=== PATIENT | male | born 1980 | race Caucasian/White ===

== ENCOUNTER 2017-02-23 08:53 | Emergency (ER) | payer BC ==
[2017-02-23 09:00] VITALS: BMI 24.7
[2017-02-23] MEDS ORDERED: Oxycodone/Acetaminophen 5/325 mg Tab PO STA (09:56)
--- NOTE | 2017-02-23 09:57 | C.PDOC ---
History Of Present Illness 36 yr old male, hx of valve replacement on coumadin presents to the ER with complaints of left facial pain for the past 3 weeks. Patient states the pain is frontal but radiates to left side of head the maxillary, gum and teethes. Patient has seen the PMD who thought it was sinusitis and prescribed the patient amoxicillin, Claritin D and Benadryl, which the patient states did not help. Patient came into the ED today stating the pain /headache has worsen. Patient denies fever, chills, vision changes, cough, chest pain, SOB, nausea, vomiting, abdominal pain, diarrhea, weakness or numbness. Time Seen by Provider: 02/23/17 09:12 Chief Complaint (Nursing): Headache History Per: Patient History/Exam Limitations: no limitations Onset/Duration Of Symptoms: Persistent (3 weeks) Preceeding Symptoms: None Associated Symptoms: denies: Photophobia, Blurred Vision Past Medical History Reviewed: Historical Data, Nursing Documentation, Vital Signs Vital Signs: Last Vital Signs Temp 97.9 F 02/23/17 12:33 Pulse 71 02/23/17 12:33 Resp 17 02/23/17 12:33 BP 126/71 02/23/17 12:33 Pulse Ox 99 02/23/17 12:33 - Medical History Other PMH: Rhumatic Fever Other Surgeries: aortic valve replaced - [facility] Procedures INJECT/INFUSE NEC (06/13/05) Family History: States: No Known Family Hx - Social History Hx Alcohol Use: No Hx Substance Use: No Review Of Systems Except As Marked, All Systems Reviewed And Found Negative. Constitutional: Positive for: Other (Left facial pain radiating to gum and teeth.). Negative for: Fever, Chills Eyes: Negative for: Vision Change Cardiovascular: Negative for: Chest Pain Respiratory: Negative for: Shortness of Breath Gastrointestinal: Negative for: Nausea, Vomiting, Abdominal Pain, Diarrhea Neurological: Positive for: Headache (Frontal radiating to maxillary ). Negative for: Weakness, Numbness Physical Exam - Physical Exam Appears: Non-toxic, No Acute Distress Skin: Warm, Dry, No Rash Head: Atraumatic, Normacephalic Oral Mucosa: Moist Tongue: Normal Appearing, No Swelling Teeth: Normal Dentition, No Tender To Palpation, No Loose, Other (multiple fillings) Throat: Normal, No Erythema, No Exudate Neck: Normal, Normal ROM, Supple Chest: Symmetrical, No Tenderness Cardiovascular: Rhythm Regular, No Murmur Respiratory: Normal Breath Sounds, No Rales, No Rhonchi, No Stridor, No Wheezing Extremity: Normal ROM, No Swelling Neurological/Psych: Oriented x3, Normal Speech, Normal Motor ED Course And Treatment O2 Sat by Pulse Oximetry: 100 - CT Scan/US CT - Head Other Rad Studies (CT/US): Read By Radiologist, Radiology Report Reviewed CT/US Interpretation: PROCEDURE: CT HEAD WITHOUT CONTRAST. HISTORY: Left sided MONTANEZ, on coumadin, ?sinusitis,. COMPARISON: None available. TECHNIQUE: Axial computed tomography images were obtained through the head/brain without intravenous contrast. Radiation dose: Total exam DLP = 892 mGy-cm. FINDINGS: HEMORRHAGE: No intracranial hemorrhage. BRAIN: No mass effect or edema. No atrophy or chronic microvascular ischemic changes. VENTRICLES: Unremarkable. No hydrocephalus. CALVARIUM: Unremarkable. PARANASAL SINUSES: Unremarkable as visualized. No significant inflammatory changes. MASTOID AIR CELLS: Unremarkable as visualized. No inflammatory changes. OTHER FINDINGS: None. IMPRESSION: Normal CT of the Head. Progress Note: Medicated with percocet Medical Decision Making Medical Decision Making: PLAN: * CT - Head * INR * Percocet PO INR 3.4 CT (- )acute bleed or sinusitis Pt reprots dental exan with x rays less than a mth ago that was normal Results discussed Plan start gabapentin and neurology f/u Disposition Counseled Patient/Family Regarding: Diagnosis, Need For Followup - Disposition Referrals: Chito Alvarez MD [Staff Provider] - Disposition: HOME/ ROUTINE Disposition Time: 12:07 Condition: GOOD Additional Instructions: Follow up with PMD and Neurologist Prescriptions: Gabapentin [Neurontin] 1 cap PO TID #50 cap oxyCODONE/Acetaminophen [Percocet 5/325 mg Tab] 1 tab PO Q4H PRN #12 tab PRN Reason: .severe pain Instructions: Trigeminal Neuralgia (ED) Forms: Work Excuse - Clinical Impression Clinical Impression: Trigeminal neuralgia - Scribe Statement The provider has reviewed the documentation as recorded by the Scribe Sanam Chamberlain Provider Attestation: All medical record entries made by the Scribe were at my direction and personally dictated by me. I have reviewed the chart and agree that the record accurately reflects my personal performance of the history, physical exam, medical decision making, and the department course for this patient. I have also personally directed, reviewed, and agree with the discharge instructions and disposition.
[2017-02-23] MEDS ORDERED: Oxycodone/Acetaminophen 5/325 mg Tab ONE (10:07)
[2017-02-23 10:36] LABS: INR 3.4
--- NOTE | 2017-02-23 10:54 | CT ---
PROCEDURE: CT HEAD WITHOUT CONTRAST. HISTORY: Left sided MONTANEZ, on coumadin, ?sinusitis, COMPARISON: None available. TECHNIQUE: Axial computed tomography images were obtained through the head/brain without intravenous contrast. Radiation dose: Total exam DLP = 892 mGy-cm. FINDINGS: HEMORRHAGE: No intracranial hemorrhage. BRAIN: No mass effect or edema. No atrophy or chronic microvascular ischemic changes. VENTRICLES: Unremarkable. No hydrocephalus. CALVARIUM: Unremarkable. PARANASAL SINUSES: Unremarkable as visualized. No significant inflammatory changes. MASTOID AIR CELLS: Unremarkable as visualized. No inflammatory changes. OTHER FINDINGS: None. IMPRESSION: Normal CT of the Head.
[2017-02-23 12:34] VITALS: BP 126/71; PULSE 71; RESP 17; TEMP 97.9
[2017-02-24 08:17] VITALS: O2SAT 100
== END 2017-02-23 12:35 | disposition home or self-care (01) ==
LOC: C.ER 08:53
DX: G50.0 Trigeminal neuralgia (principal)

== ENCOUNTER 2017-03-03 10:32 | Emergency (ER) | payer BC ==
[2017-03-03 10:33] VITALS: BMI 24.7
[2017-03-03 10:40] VITALS: BP 141/87; PULSE 89; RESP 16; TEMP 97.5; O2SAT 98
--- NOTE | 2017-03-03 11:59 | C.PDOC ---
History Of Present Illness 36 yr old male presents to the ER c/o sharp shooting left sided facial pain for the past 2 weeks. Patient reports he was seen on February 23 in the ED, diagnosed with Trigeminal Neuralgia. Patient was seen by Dr.Monica Alonso and was given prescription for CTs of cervical and TMJ area. He has not yet been able to make appointment for imaging. He was given gabapentin and percocet for pain, states he has not been trying not to take the percocet since "it is addictive". He denies fever/chills, chest pain, SOB, nausea, vomiting, headache, dizziness, facial droop, slurred speech, visual changes, extremity weakness, sensory changes. Time Seen by Provider: 03/03/17 10:47 Chief Complaint (Nursing): Headache History Per: Patient History/Exam Limitations: no limitations Onset/Duration Of Symptoms: Persistent (2 weeks) Severity: Moderate Quality: Sharp, "Pain" Past Medical History Reviewed: Historical Data, Nursing Documentation, Vital Signs Vital Signs: Last Vital Signs Temp 97.5 F L 03/03/17 10:40 Pulse 89 03/03/17 10:40 Resp 16 03/03/17 10:40 BP 141/87 03/03/17 10:40 Pulse Ox 98 03/03/17 13:49 - [facility] Procedures INJECT/INFUSE NEC (06/13/05) Family History: States: No Known Family Hx - Social History Hx Alcohol Use: No Hx Substance Use: No - Immunization History Hx Tetanus Toxoid Vaccination: No Hx Influenza Vaccination: No Hx Pneumococcal Vaccination: No Review Of Systems Except As Marked, All Systems Reviewed And Found Negative. Constitutional: Negative for: Fever, Chills Cardiovascular: Negative for: Chest Pain, Palpitations Respiratory: Negative for: Shortness of Breath Gastrointestinal: Negative for: Nausea, Vomiting Musculoskeletal: Negative for: Neck Pain Skin: Negative for: Rash Neurological: Positive for: Other (Sharp, shooting left sided facial pain). Negative for: Weakness, Numbness Physical Exam - Physical Exam Appears: Well, Non-toxic, No Acute Distress Skin: Normal Color, Warm, Dry, No Rash Head: Atraumatic, Normacephalic, Other (no palpable/tender temporal arteries) Eye(s): bilateral: Normal Inspection, PERRL, EOMI Oral Mucosa: Moist Neck: Normal, Normal ROM, No Midline Cervical Tenderness, No Paracervical Tenderness, No Step Off Deformity, Supple Lymphatic: No Adenopathy Cardiovascular: Rhythm Regular Respiratory: Normal Breath Sounds, No Rhonchi, No Wheezing Gastrointestinal/Abdominal: Normal Exam, Bowel Sounds, Soft, No Tenderness, No Guarding, No Rebound Extremity: Normal ROM, No Swelling Neurological/Psych: Oriented x3, Normal Speech, Normal Cognition, Normal Cranial Nerves, No Cerebellar Signs, Normal Motor, Normal Sensation ED Course And Treatment O2 Sat by Pulse Oximetry: 98 (RA) Pulse Ox Interpretation: Normal - CT Scan/US CT - Cervical Spine Other Rad Studies (CT/US): Read By Radiologist, Radiology Report Reviewed CT/US Interpretation: PROCEDURE: CT Cervical Spine without contrast. HISTORY: Facial pain. COMPARISON: None available. TECHNIQUE: Axial computed tomography images were obtained of the cervical spine without the use of intravenous contrast. Coronal and sagittal reformatted images were created and reviewed. Radiation dose: Total exam DLP = 430.02 mGy-cm. This CT exam was performed using one or more of the following dose reduction techniques: Automated exposure control, adjustment of the mA and/or kV according to patient size, and/or use of iterative reconstruction technique. FINDINGS: VERTEBRAE: Vertebral bodies maintained in height. Normal vertebral alignment maintained. Atlantoaxial articulation and odontoid process are intact. DISCS/SPINAL CANAL/ NEURAL FORAMINA: Intervertebral disc spaces are maintained in height. Minimal disc bulge at C5-6 without spinal or neural foraminal stenosis. No spinal or neural foraminal stenosis elsewhere. PARASPINAL SOFT TISSUES: Unremarkable. OTHER FINDINGS: None. IMPRESSION: Minimal disc bulge at C5-6. No spinal or neural foraminal stenosis. The remainder of the examination is unremarkable. CT - IAC Other Rad Studies (CT/US): Read By Radiologist, Radiology Report Reviewed CT/US Interpretation: CT scan of the temporal bones dated 03/03/2017. History: Assess the left TMJ. Contiguous helical/transaxial, high resolution images of the temporal bones were obtained. Coronal and sagittal reformats were generated. No prior study available for comparison. This CT exam was performed using one or more of the following dose reduction techniques: Automated exposure control, adjustment of the mA and/or kV according to patient size, and/ or use of iterative reconstruction technique. Total exam DLP = 657.59 mGy-cm. Findings: The the visualized of mastoid air complexes are well-developed and currently well-aerated. No evidence of fluid or soft tissue opacification. The internal auditory canals and CP angle cisterns appear unremarkable porous acoustic is symmetric bilaterally. The inner ear structures are unremarkable. The middle ear canals and contents also normal. Drum spurs and ossicular chains are intact appropriately located without destructive change. No soft tissue was present within the middle ear canals. The external auditory canals are clear. The visualized portions of the mandible are also intact. Mandibular condyles are appropriately located. The visualized paranasal sinuses well- developed and currently well-aerated. No fluid levels seen to suggest acute sinusitis. Small area of lobulated mucosal thickening posterior inferior margin left maxillary antrum. Ostiomeatal complexes are patent. Small bilateral js bullosa left slightly larger than right. Minor mucosal thickening noted within a few superior ethmoid air cells. The frontal and sphenoid ethmoidal recesses are patent. Impression: Unremarkable examination of the temporal bones as described. The mandibular condyles intact and appropriately located. Progress Note: Patient given IM toradol for pain. CT Cspine and temporal joint ordered. Reevaluation Time: 12:45 Reassessment Condition: Improved (On reassessment, patient is resting comfortably, in no pain/distress. He was given results of CT scans, and instructed to follow up with neurologist within 1 week for further evaluation. Dr. Alvarez's info provided (was referral given to him during last visit). Patient understands he should return to ED if symptoms worsen.) Disposition Counseled Patient/Family Regarding: Studies Performed, Diagnosis, Need For Followup - Disposition Referrals: Chito Alvarez MD [Staff Provider] - Ping Alonso MD [Non-Staff] - Javier Schneider MD [Staff Provider] - Disposition: HOME/ ROUTINE Disposition Time: 12:45 Condition: STABLE Additional Instructions: FOLLOW UP WITH NEUROLOGY WITHIN 1 WEEK USE YOUR PAIN MEDICATIONS NEEDED RETURN TO ER IF SYMPTOMS WORSEN Instructions: Trigeminal Neuralgia (ED) Print Language: CANADIAN - POA Present On Arrival: None - Clinical Impression Clinical Impression: Trigeminal neuralgia - Scribe Statement The provider has reviewed the documentation as recorded by the Scribe Sanam Chamberlain Provider Attestation: All medical record entries made by the Marleyibanaid were at my direction and personally dictated by me. I have reviewed the chart and agree that the record accurately reflects my personal performance of the history, physical exam, medical decision making, and the department course for this patient. I have also personally directed, reviewed, and agree with the discharge instructions and disposition.
--- NOTE | 2017-03-03 12:17 | CT ---
PROCEDURE: CT Cervical Spine without contrast HISTORY: Facial pain COMPARISON: None available. TECHNIQUE: Axial computed tomography images were obtained of the cervical spine without the use of intravenous contrast. Coronal and sagittal reformatted images were created and reviewed. Radiation dose: Total exam DLP = 430.02 mGy-cm. This CT exam was performed using one or more of the following dose reduction techniques: Automated exposure control, adjustment of the mA and/or kV according to patient size, and/or use of iterative reconstruction technique. FINDINGS: VERTEBRAE: Vertebral bodies maintained in height. Normal vertebral alignment maintained. Atlantoaxial articulation and odontoid process are intact. DISCS/SPINAL CANAL/NEURAL FORAMINA: Intervertebral disc spaces are maintained in height. Minimal disc bulge at C5-6 without spinal or neural foraminal stenosis. No spinal or neural foraminal stenosis elsewhere. PARASPINAL SOFT TISSUES: Unremarkable. OTHER FINDINGS: None. IMPRESSION: Minimal disc bulge at C5-6. No spinal or neural foraminal stenosis. The remainder of the examination is unremarkable.
--- NOTE | 2017-03-03 12:20 | CT ---
CT scan of the temporal bones dated 03/03/2017 History: Assess the left TMJ Contiguous helical/transaxial, high resolution images of the temporal bones were obtained. Coronal and sagittal reformats were generated. No prior study available for comparison. This CT exam was performed using one or more of the following dose reduction techniques: Automated exposure control, adjustment of the mA and/or kV according to patient size, and/or use of iterative reconstruction technique. Total exam DLP = 657.59 mGy-cm. Findings: The the visualized of mastoid air complexes are well-developed and currently well-aerated. No evidence of fluid or soft tissue opacification. The internal auditory canals and CP angle cisterns appear unremarkable porous acoustic is symmetric bilaterally. The inner ear structures are unremarkable. The middle ear canals and contents also normal. Drum spurs and ossicular chains are intact appropriately located without destructive change. No soft tissue was present within the middle ear canals. The external auditory canals are clear. The visualized portions of the mandible are also intact. Mandibular condyles are appropriately located. The visualized paranasal sinuses well-developed and currently well-aerated. No fluid levels seen to suggest acute sinusitis. Small area of lobulated mucosal thickening posterior inferior margin left maxillary antrum. Ostiomeatal complexes are patent. Small bilateral js bullosa left slightly larger than right. Minor mucosal thickening noted within a few superior ethmoid air cells. The frontal and sphenoid ethmoidal recesses are patent. Impression: Unremarkable examination of the temporal bones as described. The mandibular condyles intact and appropriately located.
== END 2017-03-03 12:51 | disposition home or self-care (01) ==
LOC: C.ER 10:32
DX: G50.0 Trigeminal neuralgia (principal)
CPT/HCPCS: 70480; 72125; 96372; 99285; J1885

== ENCOUNTER 2017-03-25 07:32 | Emergency (ER) | payer BC ==
[2017-03-25 07:33] VITALS: BMI 24.7
[2017-03-25 07:46] VITALS: RESP 20
--- NOTE | 2017-03-25 08:18 | C.PDOC ---
History Of Present Illness 36-year-old male, PMHx includes Trigeminal Neuralgia, presents to the emergency department with complaints of headache. Patient states he has been experiencing three-month duration of a left-sided facial pain. Pain is intermittent in nature , and is described as "sharp." Patient notes that pain radiates to his head and teeth. States he is taking Lyrica and with transient relief. Denies neck pain, numbness/weakness, visual/speech changes, nausea/vomiting, dizziness, or any other associated symptoms. Patient is on 200mg of Tegrato BID. PMD Javier Schneider MD. Time Seen by Provider: 03/25/17 07:54 Chief Complaint (Nursing): Medical Clearance History Per: Patient History/Exam Limitations: no limitations Onset/Duration Of Symptoms: Days Current Symptoms Are (Timing): Still Present Severity: Moderate Past Medical History Reviewed: Historical Data, Nursing Documentation, Vital Signs Vital Signs: Last Vital Signs Temp 98.2 F 03/25/17 09:16 Pulse 66 03/25/17 09:16 Resp 20 03/25/17 09:16 BP 110/68 03/25/17 09:16 Pulse Ox 98 03/25/17 09:16 - [facility] Procedures INJECT/INFUSE NEC (06/13/05) Family History: States: Unknown Family Hx - Social History Hx Alcohol Use: No Hx Substance Use: No - Immunization History Hx Tetanus Toxoid Vaccination: No Hx Influenza Vaccination: No Hx Pneumococcal Vaccination: No Review Of Systems Except As Marked, All Systems Reviewed And Found Negative. Constitutional: Negative for: Fever, Chills Eyes: Negative for: Vision Change Cardiovascular: Negative for: Chest Pain, Palpitations Gastrointestinal: Negative for: Vomiting Musculoskeletal: Negative for: Neck Pain, Back Pain Skin: Negative for: Rash Neurological: Positive for: Headache. Negative for: Weakness, Numbness, Incoordination, Confusion, Seizures, Altered Mental Status Physical Exam - Physical Exam Appears: Non-toxic, No Acute Distress (MODERATE-SEVERE DISTRESS.) Skin: Warm, Dry, No Rash Head: Atraumatic, Normacephalic Eye(s): bilateral: Normal Inspection, PERRL, EOMI Oral Mucosa: Moist Lips: Normal Appearing Neck: Normal ROM Cardiovascular: Rhythm Regular Respiratory: No Accessory Muscle Use Extremity: Normal ROM Neurological/Psych: Oriented x3, Normal Speech, Normal Cognition, Normal Cranial Nerves, Normal Motor, Normal Sensation, Normal Reflexes, Other (NO FOCAL DEFICITS) ED Course And Treatment O2 Sat by Pulse Oximetry: 97 Progress - Re-Evaluation Re-evaluation Note: 03/25/17 09:06 D/W DR GERARDO NEURO LEAD SCIENTIST: ADVISES INCR TEGRETOL, CONSIDER GABAPENTIN 600 QHS, 300 QAM 300 IN AFTERNOON PT NOW STATES WAS PREVIOUSLY ON NEURONTIN 300 MG TID X 1 MO BUT WO IMPROVE "THATS WHY I AM NOW ON LYRICA". UNABLE TO AGGRESSIVELY INCREASE TEGRETOL DUE TO MED INTERACTION WITH COUMADIN. PS ADVISED BY [facility] [place] INTELLIGENCE SUPPORT CAN ONLY STAY ON WARFARIN. FEELS BETTER S/P PERCOCET. ADVISED FU NEURO, OTHER TRIGEMINAL [facility] 03/25/17 09:10 - Data Reviewed Data Reviewed: Old records - Continuity of Care Discussed patient case with:: Patient, Family-HIPPA compliant Discussed pt. case with it architecture consultant/specialty: Neurology Medical Decision Making Medical Decision Making: Impression: Trigeminal Neuralgia Prior Visits: Notes and records from previous visits were reviewed. Patient evaluated in ED on 02/23 and 03/03 for same complaint. Patient had CT Spine, CT Head and an Internal auditory canal CT scan, any of which did not show any acute findings. Plan: * Percocet * Reassess and Disposition Consultations: 08:24 Dr Kb Gerardo, (neurologist on-call) was called, and message was left. Pending call-back. 08:51 Second call was placed for Dr. Gerardo. Pending call-back. 08:52 Case discussed w/ Dr Gerardo, states to discharge patient w/ Rx for Gabapentin ( 300TID), and increase dose for Tegratol (300BID), and outpatient f/u in office. Progress: Patient was re-evaluated, no focal neuro deficits, states pain has improved. He is resting comfortably, is tolerating PO, and pain has improved. Patient has no photophobia, rash, fever, or nuchal rigidity. Patient was instructed to follow up with physician/clinic in 1-2 days. He is agreeable with plan to discharge for f/u/ All questions were answered Disposition Counseled Patient/Family Regarding: Diagnosis, Need For Followup, Rx Given - Disposition Referrals: [facility] [Outside] Kb Gerardo MD [Staff Provider] - Disposition: HOME/ ROUTINE Disposition Time: 09:09 Condition: IMPROVED Additional Instructions: [facility] [email or web address] [address] [facility] [email or web address] [id number] Prescriptions: oxyCODONE/Acetaminophen [Percocet 5/325 mg Tab] 1 tab PO QID PRN #14 tab PRN Reason: Pain Instructions: Trigeminal Neuralgia (ED) - Clinical Impression Clinical Impression: Chronic pain, Trigeminal neuralgia - Scribe Statement The provider has reviewed the documentation as recorded by the Scribanaid Sanchez All medical record entries made by the Scribe were at my direction and personally dictated by me. I have reviewed the chart and agree that the record accurately reflects my personal performance of the history, physical exam, medical decision making, and the department course for this patient. I have also personally directed, reviewed, and agree with the discharge instructions and disposition.
[2017-03-25] MEDS ORDERED: Oxycodone/Acetaminophen 5/325 mg Tab PO STA (08:21)
[2017-03-25] MEDS ORDERED: Oxycodone/Acetaminophen 5/325 mg Tab ONE (08:38)
[2017-03-25 09:17] VITALS: BP 110/68; PULSE 66; TEMP 98.2
[2017-03-25 10:48] VITALS: O2SAT 97
== END 2017-03-25 09:28 | disposition home or self-care (01) ==
LOC: C.ER 07:32
DX: G50.0 Trigeminal neuralgia (principal); G89.29 Other chronic pain